=== PATIENT | male | born 1985 | race Caucasian/White ===

== ENCOUNTER 2017-09-18 08:31 | Emergency (ER) | payer BC ==
[~2017-09-18] VITALS: Ht 167.6 cm; Wt 79.4 kg
[~2017-09-18 08:31] MED LIST: NOHOMEMEDS; PEPCID20 MG PO
[2017-09-18 09:45] LABS: HEMATOCRIT 43.8 % (38.0-50.0); HEMOGLOBIN 15.4 G/DL (12.5-16.6); MCH 29.6 PG (29.0-34.0); MCHC 35.2 G/DL (30.0-36.0); MCV 84.2 FL (86-99); PLATELET COUNT 265 K/uL (156-360); RBC DIS.WIDTH-CV 11.9 % (11.8-14.6); RBC DIS.WIDTH-SD 36.1 % (39-53); WHITE BLOOD COUNT 6.8 K/uL (4.1-10.2)
[2017-09-18 09:55] LABS: ALBUMIN 4.8 g/dL (3.2-4.8); CHLORIDE 106 mEq/L (99-109); SODIUM 139 mEq/L (136-147)
[2017-09-18 09:57] LABS: GLUCOSE 102 mg/dL (70-99)
[2017-09-18 09:59] LABS: TOTAL BILIRUBIN 1.3 mg/dL (0.0-1.0)
[2017-09-18 10:01] LABS: ALKALINE PHOSPHATASE 59 IU/L (3-129); CREATININE 0.9 mg/dL (0.6-1.3); GFR ESTIMATE (CALCULATED) > 59 mL/min/ (58.99-99999)
[2017-09-18 10:02] LABS: UREA NITROGEN (BUN) 14 mg/dL (9-23)
[2017-09-18 10:03] LABS: AST (GOT) 17 IU/L (2-34)
[2017-09-18 10:04] LABS: APPEARANCE CLEAR ((CLEAR)); BILIRUBIN NEGATIVE; BLOOD NEGATIVE; COLOR YELLOW ((YELLOW)); GLUCOSE (STRIP) NEGATIVE; KETONES 20; LEUKOCYTES NEGATIVE; NITRITE NEGATIVE; PROTEIN (STRIP) NEGATIVE; SPECIFIC GRAVITY 1.014 (1.000-1.030); UCUL ADDED? NO; UROBILINOGEN 0.2 MG/DL (0.2-1.0)
[2017-09-18 10:04] LABS: ALT (GPT) 17 IU/L (3-49)
[2017-09-18 10:05] LABS: LIPASE 12 U/L (1.0-51.0)
[2017-09-18] MEDS ORDERED: PRILOSEC20 MG PO (13:31)
[2017-09-18 13:37] VITALS: BP 129/83
== END 2017-09-18 13:39 | disposition home or self-care (01) ==
LOC: EME 08:31
PROVIDERS: Physician Assistant
DX: R10.13 Epigastric pain (principal); E80.7 Disorder of bilirubin metabolism, unspecified; K21.9 Gastro-esophageal reflux disease without esophagitis; N40.0 Benign prostatic hyperplasia without lower urinary tract symptoms; Z88.0 Allergy status to penicillin
CPT/HCPCS: 74177; 76705; 80053; 81003; 83690; 85027; 99281; 99285; J2405; J3010; J7030